=== PATIENT | male | born 1985 ===

== ENCOUNTER 2017-08-19 12:38 | Emergency (ER) | payer MEDICAID, OTHER ==
[2017-08-19 12:38] VITALS: BMI 30.1
[2017-08-19] MEDS ORDERED: Sodium Chloride 0.9% 500 ML IV ONE (13:20)
[2017-08-19] MEDS ORDERED: cefTRIAXone IV 1 gm in Dextros 50 ML IVPB ONE (13:28)
[2017-08-19] MEDS ORDERED: Vancomycin 1 GM 1 GM/250 ML BAG IVPB ONE (13:28)
[2017-08-19 13:33] LABS: BASO # 0.1 K/uL (0.0-0.2); BASO % 0.8 % (0.0-2.0); EOS # 0.3 K/uL (0.0-0.7); EOS % 2.6 % (0.0-4.0); HEMATOCRIT 42.1 % (35.0-51.0); LYMPH # 1.5 K/uL (1.0-4.3); LYMPH % 14.1 % (20.0-40.0); MEAN CELL VOLUME 92.9 fL (80.0-94.0); MEAN CORPUSCULAR HEMOGLOBIN 32.8 pg (27.0-31.0); MEAN CORPUSCULAR HGB CONC 35.3 g/dL (33.0-37.0); MEAN PLATELET VOLUME 8.8 fL (7.2-11.7); MONO # 0.6 K/uL (0.0-0.8); MONO % 5.9 % (0.0-10.0); RED CELL DISTRIBUTION WIDTH 12.3 % (11.5-14.5); WHITE BLOOD COUNT 10.6 K/uL (4.8-10.8)
[2017-08-19 13:39] LABS: CHLORIDE 103 mmol/L (98-107); POTASSIUM 4.4 mmol/L (3.6-5.2); SODIUM 138 mmol/L (132-148)
[2017-08-19 13:42] LABS: BLOOD UREA NITROGEN 13 mg/dL (9-20); CARBON DIOXIDE 23 mmol/L (22-30); GFR AFRICAN-AMERICAN > 60; GLUCOSE,RANDOM 74 mg/dL (75-110)
--- NOTE | 2017-08-19 13:58 | C.PDOC ---
History Of Present Illness 31 yo male come in for wound check after abscess I&D 2 days ago at [place] [facility]. Pt reports, " accidentally took off the packing". Patient admits, noted increasing redness over the wound area on Right forearm. Pt denies high fever, chills, denies increasing pain over wound area on Right forearm, denies significant discharges, denies deformity, weakness, sensory or vascular deficits to Right arm. Pt denies known trauma or injury to Right arm. Time Seen by Provider: 08/19/17 12:55 Chief Complaint (Nursing): Wound Check History Per: Patient Current Symptoms Are (Timing): Still Present Past Medical History Reviewed: Historical Data, Nursing Documentation, Vital Signs Vital Signs: Last Vital Signs Temp 98 F 08/19/17 15:39 Pulse 80 08/19/17 15:39 Resp 20 08/19/17 15:39 BP 114/67 08/19/17 15:39 Pulse Ox 98 08/19/17 15:39 - Medical History PMH: No Chronic Diseases Surgical History: No Surg Hx Family History: States: No Known Family Hx - Social History Hx Tobacco Use: Yes Hx Alcohol Use: No Hx Substance Use: No - Immunization History Hx Tetanus Toxoid Vaccination: No Hx Influenza Vaccination: No Hx Pneumococcal Vaccination: No Review Of Systems Except As Marked, All Systems Reviewed And Found Negative. Constitutional: Negative for: Fever, Chills ENT: Negative for: Throat Pain Musculoskeletal: Positive for: Arm Pain Skin: Positive for: Lesions Neurological: Negative for: Weakness, Numbness, Altered Mental Status, Dizziness Physical Exam - Physical Exam Appears: Well, Non-toxic, No Acute Distress Skin: Normal Color, Warm, Dry, Other (Right forearm open wound 2cm diameter volar aspect with mild amount of purulent discharges from wound, no packing. (+ ) diffuse edema around wound, erythema with proximal streaking to inner aspect Right upper arm/axilla.) Eye(s): bilateral: PERRL Nose: No Flaring Oral Mucosa: Moist Neck: Supple Lymphatic: No Axilla Node Tenderness Cardiovascular: Rhythm Regular Respiratory: No Decreased Breath Sounds, No Accessory Muscle Use, No Rales, No Rhonchi, No Stridor, No Wheezing Back: No CVA Tenderness, No Vertebral Tenderness Extremity: Normal ROM (RUE), No Pedal Edema, Capillary Refill (less than 2sec to Right arm), No Deformity Neurological/Psych: Oriented x3, Normal Speech, Normal Motor, Normal Sensation, Normal Reflexes ED Course And Treatment - Laboratory Results Result Diagrams: 08/19/17 13:27 08/19/17 13:27 Lab Interpretation: Normal O2 Sat by Pulse Oximetry: 100 Pulse Ox Interpretation: Normal Progress Note: Pt was OBS in ED for 2.5 hours and remained stable. On re-eval, pt is afebrile, hemodynamicaly stable. non-toxic. ENT: no acute findings. neck: Supple. Lungs: CTA B/L, BS equal B/L. RUE: exam c/w forearm abscess s/p I&D with cellulitis, no flactulance. FAROM, no neurovascular deficits. Blood work review and appears normal, no leukocytosis or left shift. Wound cx- pending. Pt advised on course of ds. ref. to f/u with ED in 2 days for re- eval. return to ED if any worsening or new changes. Disposition Counseled Patient/Family Regarding: Studies Performed, Diagnosis, Need For Followup, Rx Given - Disposition Disposition: HOME/ ROUTINE Disposition Time: 15:31 Condition: STABLE Additional Instructions: Keep Right arm elevated Clean wound daily for peroxide Take medication as prescribed return to ED in 2 days for re-evaluation. return to ED at any time if no improvement in redness, fever, increase pain over wound or any other new changes. Prescriptions: traMADol [Ultram] 50 mg PO TID #7 tab Instructions: Cellulitis (ED) Forms: [facility] (Cameroonian) - Clinical Impression Clinical Impression: Cellulitis
[2017-08-19 15:39] VITALS: BP 114/67; PULSE 80; RESP 20; TEMP 98
[2017-08-19 15:50] VITALS: O2SAT 100
== END 2017-08-19 15:54 | disposition home or self-care (01) ==
LOC: C.ER 12:38
DX: L03.113 Cellulitis of right upper limb (principal)
CPT/HCPCS: 80048; 85025; 87040; 87070; 87181; 96365; 96367; 96375; 99284; J0696; J2930; J7040; J7050

== ENCOUNTER 2017-08-21 16:41 | Emergency (ER) | payer MEDICAID, OTHER ==
[2017-08-21 16:42] VITALS: BMI 30.1
[2017-08-21 16:52] VITALS: TEMP 98
--- NOTE | 2017-08-21 17:19 | C.PDOC ---
History Of Present Illness 31 yo male come in for scheduled wound check after was seen 2 days ago here in ED due to Right forearm abscess with cellulitis. Pt reports, " feels and my wound looks much better". Pt admits, was cleaning wound daily, complaint with abx Rx: Bactrim and Keflex. Otherwise, pt denies fever, chills, increase in Right arm pain or wound draining, denies weakness, sensory or vascular deficits to Right arm. Pt admits, redness around Right forearm wound and Right arm significant reduced. Ambulate to ED for evaluation, not in any apparent distress. Time Seen by Provider: 08/21/17 17:02 Chief Complaint (Nursing): Wound Check History Per: Patient Current Symptoms Are (Timing): Better Past Medical History Reviewed: Historical Data, Nursing Documentation, Vital Signs Vital Signs: Last Vital Signs Temp 98 F 08/21/17 16:50 Pulse 79 08/21/17 17:23 Resp 18 08/21/17 17:23 BP 124/72 08/21/17 17:23 Pulse Ox 98 08/21/17 17:23 - Medical History PMH: No Chronic Diseases Surgical History: No Surg Hx Family History: States: No Known Family Hx - Social History Hx Tobacco Use: Yes Hx Alcohol Use: No Hx Substance Use: No - Immunization History Hx Tetanus Toxoid Vaccination: No Hx Influenza Vaccination: No Hx Pneumococcal Vaccination: No Review Of Systems Except As Marked, All Systems Reviewed And Found Negative. Constitutional: Negative for: Fever, Chills ENT: Negative for: Throat Pain Musculoskeletal: Negative for: Arm Pain Skin: Positive for: Lesions Neurological: Negative for: Weakness, Numbness, Altered Mental Status, Dizziness Physical Exam - Physical Exam Appears: Well, Non-toxic, No Acute Distress Skin: Normal Color, Warm, Other ((+)OPEN WOUND 2CM DIAMETER VOLAR ASPECT RIGHT FOREARM, MILD YELLOW DISCAHRGES, NO ERYTHEMA, NO FLACTULANCE.) Extremity: Normal ROM, No Tenderness, No Deformity, No Swelling Neurological/Psych: Oriented x3, Normal Speech, Normal Motor, Normal Sensation, Normal Reflexes ED Course And Treatment O2 Sat by Pulse Oximetry: 98 Pulse Ox Interpretation: Normal Progress Note: On re-evaluation, pt is afebrile, hemodynamicaly stable. Non- toxic. Right forearm: exam c/w healing abscess with mod improved cellulitis. No proximal streaking compare to 2 days ago visit, no flactulance. FAROM of RUE , no neurovascular deficits. Neurologicaly intact. Wound cx results review (+) MRSA with sensitivity to Bactrim. results review and Pt was notified. Pt was encourage to cont abx tx to be completed. Advised on wound care and course of ds. ref. to f/u with PMD in 2-3 days for re-eval. return if any worsening or new changes. Disposition Counseled Patient/Family Regarding: Diagnosis, Need For Followup - Disposition Referrals: [facility] [Outside] Disposition: HOME/ ROUTINE Disposition Time: 17:17 Condition: STABLE Additional Instructions: CONTINUE CLEANING WOUND WITH PEROXIDE DAILY CONTINUE ANTIBIOTIC INITIATED TO COMPLETE TREATMENT FOLLOW UP WITH PMD IN 2-3 DAYS FOR RE-EVALUATION. RETURN TO ED IF ANY WORSENING OR NEW CHANGES. Prescriptions: Sulfamethoxazole/Trimethoprim [Bactrim DS 800 mg-160 mg] 1 tab PO BID #14 tab Instructions: MRSA (Methicillin Resistant Staphylococcus Aureus) (ED) Forms: [employer] (Belarusian) - Clinical Impression Clinical Impression: Wound cellulitis, MRSA (methicillin resistant staph aureus) culture positive
[2017-08-21 17:24] VITALS: BP 124/72; PULSE 79; RESP 18
[2017-08-21 19:27] VITALS: O2SAT 98
== END 2017-08-21 17:25 | disposition home or self-care (01) ==
LOC: C.ER 16:41
DX: L03.113 Cellulitis of right upper limb (principal); Z22.322 Carrier or suspected carrier of Methicillin resistant Staphylococcus aureus